=== PATIENT | female | born 1955 | race Caucasian/White ===

== ENCOUNTER 2022-11-18 12:51 | Emergency (ER) | payer OTHER ==
[~2022-11-18] VITALS: Ht 162.6 cm; Wt 55.5 kg
[2022-11-18 13:18] VITALS: BP 116/75
[2022-11-18] MEDS ORDERED: acetaminophen 325mg tablet PO ONE (14:30)
== END 2022-11-18 16:17 | disposition home or self-care (01) ==
LOC: ER 12:52
DX: S46.911A Strain of unspecified muscle, fascia and tendon at shoulder and upper arm level, right arm, initial encounter (principal); X58.XXXA Exposure to other specified factors, initial encounter; Y93.89 Activity, other specified; Y92.89 Other specified places as the place of occurrence of the external cause; Y99.8 Other external cause status
CPT/HCPCS: 73030; 99283; A4565